=== PATIENT | female | born 1970 | race Caucasian/White ===

== ENCOUNTER 2022-06-19 02:45 | Inpatient (IN) | payer BC, OTHER ==
[~2022-06-19] VITALS: Ht 152.4 cm; Wt 133.8 kg
[2022-06-19 02:48] VITALS: BP_SYST 180
[2022-06-19] MEDS ORDERED: ONDANSETRON HCL 4 MG/2 ML VIAL IVP ONE (03:15)
[2022-06-19] MEDS ORDERED: MORPHINE 4 MG INJ. 4 MG/ML VIAL IVP ONE ×2 (03:15→06:00)
[2022-06-19] MEDS ORDERED: NACL 0.9% 1,000 ML IV ONE (03:15)
[2022-06-19 03:47] LABS: BASOPHILS % (AUTO) 0.4 % (0.0-2.0); EOSINOPHILS % (AUTO) 0.1 % (0.0-4.0); HEMATOCRIT 34.2 % (36-48); HEMOGLOBIN 9.9 g/dL (12.0-16.0); LYMPHOCYTES # (AUTO) 0.5 K/uL (1.0-5.5); LYMPHOCYTES % (AUTO) 4.2 % (20.5-51.5); MEAN CORPUSCULAR HEMOGLOBIN 17 pg (27-31); MEAN CORPUSCULAR HGB CONC 29 % (32-36); MEAN CORPUSCULAR VOLUME 59 fL (79.0-98.0); MONOCYTES # (AUTO) 0.2 K/uL (0.0-1.0); MONOCYTES % (AUTO) 1.8 % (1.7-9.3); NEUTROPHILS % (AUTO) 93.5 % (40.0-70.0); PLATELET COUNT (AUTO) 249 K/uL (130-430); RED BLOOD CELL COUNT(AUTO) 5.79 MIL/uL (4.2-6.2); RED CELL DISTRIBUTION WIDTH 21.9 % (9.0-15.0); WHITE BLOOD COUNT (AUTO) 12.8 K/uL (4.8-10.8)
[2022-06-19 04:13] LABS: ALBUMIN 3.4 g/dL (3.4-4.8); CREATININE 0.67 mg/dL (0.55-1.30); TOTAL BILIRUBIN 0.4 mg/dL (0.0-1.0)
[2022-06-19] MEDS ORDERED: LORazepam 2 MG/ML VIAL IVP ONE (07:00)
[2022-06-19 07:24] LABS: BILIRUBIN,URINE NEGATIVE (NEGATIVE); BLOOD, URINE NEGATIVE (NEGATIVE); CLARITY/URINE CLEAR (CLEAR); COLOR,URINE YELLOW (YELLOW); GLUCOSE,URINE NEGATIVE (NEGATIVE); KETONES,URINE NEGATIVE (NEGATIVE); LEUKOCYTE ESTERASE ,URINE NEGATIVE (NEGATIVE); NITRITE, URINE NEGATIVE (NEGATIVE); PH,URINE 7.5 (5.0-8.0); PROTEIN URINE 2+ (NEGATIVE); UROBILINOGEN,URINE 0.2 (0.2-1.0)
[2022-06-19 08:04] LABS: BACTERIA,URINE RARE /HPF (None Seen); MUCUS,URINE 1+ /LPF (None Seen); RBC,URINE 0-3 /HPF (0-3); WBC,URINE 0-3 /HPF (0-3)
[2022-06-19] MEDS ORDERED: GASTROGRAFIN 120 ML ONE (08:18)
[2022-06-19] MEDS: D5/0.45 NS 1,000 ML IV SCH ×2 (08:32→23:37)
[2022-06-19] MEDS ORDERED: ONDANSETRON HCL 4 MG/2 ML VIAL ONE (09:49)
[2022-06-19] MEDS ORDERED: HYDROmorphone 2 MG/ML VIAL ONE (09:49)
[2022-06-19] MEDS ORDERED: ePHEDrine sulfate 50 MG/ML VIAL ONE (09:49)
[2022-06-19] MEDS ORDERED: BUPIVACAINE /EPINEPHRINE/PF 0.5% 30 ML VIAL INJ ONE (09:49)
[2022-06-19] MEDS ORDERED: LR 1,000 ML IV.SOLN IV ONE (09:49)
[2022-06-19] MEDS ORDERED: PROPOFOL 200MG/ 20ML VIAL (DIPRIVAN) IV ONE (09:49)
[2022-06-19] MEDS ORDERED: SEVOFLURANE 15 MIN GAS INH ONE (09:49)
[2022-06-19] MEDS ORDERED: SUCCINYLCHOLINE CHLORIDE 20 MG/ML(QUELICIN) ONE (09:49)
[2022-06-19] MEDS ORDERED: SUGAMMADEX SODIUM 200 MG/2 ML VIAL IV ONE (09:49)
[2022-06-19] MEDS ORDERED: NS IRRIG SOLN 1000 ML IR ONE (09:49)
[2022-06-19] MEDS ORDERED: NALOXONE HCL 0.4 MG/ML AMP (NARCAN) IVP PRN ×4 (11:15→15:15)
[2022-06-19] MEDS ORDERED: ONDANSETRON HCL 4 MG/2 ML VIAL IVP PRN ×2 (11:15→15:15)
[2022-06-19] MEDS ORDERED: KETOROLAC TROMETHAMINE 30 MG VIAL IVP PRN (11:15)
[2022-06-19] MEDS ORDERED: HYDROmorphone 1 MG/ML INJ. CARTRIDGE IVP PRN ×2 (11:15)
[2022-06-19 11:29] VITALS: BP_SYST 150
[2022-06-19] MEDS ORDERED: KETOROLAC TROMETHAMINE 30 MG VIAL ONE (12:39)
[2022-06-19 13:57] VITALS: BP_SYST 130
[2022-06-19 14:00] VITALS: BP_SYST 130
[2022-06-19] MEDS ORDERED: LORazepam 2 MG/ML VIAL IVP PRN ×2 (15:00→15:15)
[2022-06-19] MEDS ORDERED: MORPHINE 2 MG/ML INJ. SYRINGE IVP PRN (15:15)
[2022-06-19 20:00] VITALS: BP_SYST 134
[2022-06-19] MEDS: MORPHINE 2 MG/ML INJ. SYRINGE IVP PRN (20:24)
[2022-06-19] MEDS: ONDANSETRON HCL 4 MG/2 ML VIAL IVP PRN (20:26)
[2022-06-19 23:44] VITALS: BP_SYST 112
[2022-06-20 04:28] VITALS: BP_SYST 132
[2022-06-20] MEDS: ONDANSETRON HCL 4 MG/2 ML VIAL IVP PRN (04:28)
[2022-06-20] MEDS: MORPHINE 2 MG/ML INJ. SYRINGE IVP PRN ×5 (04:28→22:03)
[2022-06-20 07:59] LABS: BASOPHILS % (AUTO) 0.4 % (0.0-2.0); EOSINOPHILS % (AUTO) 0.1 % (0.0-4.0); HEMATOCRIT 29.4 % (36-48); HEMOGLOBIN 8.5 g/dL (12.0-16.0); LYMPHOCYTES # (AUTO) 1.3 K/uL (1.0-5.5); LYMPHOCYTES % (AUTO) 15.8 % (20.5-51.5); MEAN CORPUSCULAR HEMOGLOBIN 17 pg (27-31); MEAN CORPUSCULAR HGB CONC 29 % (32-36); MEAN CORPUSCULAR VOLUME 60 fL (79.0-98.0); MONOCYTES # (AUTO) 0.9 K/uL (0.0-1.0); MONOCYTES % (AUTO) 10.5 % (1.7-9.3); NEUTROPHILS % (AUTO) 73.2 % (40.0-70.0); PLATELET COUNT (AUTO) 243 K/uL (130-430); RED CELL DISTRIBUTION WIDTH 21.7 % (9.0-15.0); WHITE BLOOD COUNT (AUTO) 8.2 K/uL (4.8-10.8)
[2022-06-20 08:00] VITALS: BP_SYST 135
[2022-06-20 08:16] LABS: ALBUMIN 2.7 g/dL (3.4-4.8); CREATININE 0.72 mg/dL (0.55-1.30); TOTAL BILIRUBIN 0.6 mg/dL (0.0-1.0)
[2022-06-20] MEDS: D5/0.45 NS 1,000 ML IV SCH ×2 (11:15→22:03)
[2022-06-20 12:00] VITALS: BP_SYST 137
[2022-06-20 16:00] VITALS: BP_SYST 127
[2022-06-20 20:30] VITALS: BP_SYST 125
[2022-06-21] MEDS: MORPHINE 2 MG/ML INJ. SYRINGE IVP PRN ×4 (03:13→21:34)
[2022-06-21 06:21] LABS: BASOPHILS % (AUTO) 0.3 % (0.0-2.0); EOSINOPHILS # (AUTO) 0.1 K/uL (0.0-0.4); EOSINOPHILS % (AUTO) 0.7 % (0.0-4.0); HEMATOCRIT 26.1 % (36-48); HEMOGLOBIN 7.6 g/dL (12.0-16.0); LYMPHOCYTES # (AUTO) 1.4 K/uL (1.0-5.5); LYMPHOCYTES % (AUTO) 13.8 % (20.5-51.5); MEAN CORPUSCULAR HEMOGLOBIN 18 pg (27-31); MEAN CORPUSCULAR HGB CONC 29 % (32-36); MEAN CORPUSCULAR VOLUME 60 fL (79.0-98.0); MONOCYTES # (AUTO) 0.9 K/uL (0.0-1.0); MONOCYTES % (AUTO) 8.2 % (1.7-9.3); NEUTROPHILS # (AUTO) 8.1 K/uL (1.8-7.7); PLATELET COUNT (AUTO) 229 K/uL (130-430); RED BLOOD CELL COUNT(AUTO) 4.34 MIL/uL (4.2-6.2); RED CELL DISTRIBUTION WIDTH 21.6 % (9.0-15.0); WHITE BLOOD COUNT (AUTO) 10.5 K/uL (4.8-10.8)
[2022-06-21 07:09] LABS: ALBUMIN 2.4 g/dL (3.4-4.8); CALCIUM 7.8 mg/dL (8.4-11.0); CREATININE 0.67 mg/dL (0.55-1.30); TOTAL BILIRUBIN 0.5 mg/dL (0.0-1.0)
[2022-06-21 08:00] VITALS: BP_SYST 132
[2022-06-21] MEDS: D5/0.45 NS 1,000 ML IV SCH (10:30)
[2022-06-21 12:00] VITALS: BP_SYST 132
[2022-06-21 16:00] VITALS: BP_SYST 122
[2022-06-21 20:00] VITALS: BP_SYST 113
[2022-06-21] MEDS: guaiFENesin/DEXTROMETHORPHAN 10 ML UDC PO PRN (23:38)
[2022-06-22] MEDS: D5/0.45 NS 1,000 ML IV SCH ×2 (06:25→16:00)
[2022-06-22 08:04] LABS: BASOPHILS % (AUTO) 0.4 % (0.0-2.0); EOSINOPHILS # (AUTO) 0.2 K/uL (0.0-0.4); EOSINOPHILS % (AUTO) 2.2 % (0.0-4.0); HEMATOCRIT 25.8 % (36-48); HEMOGLOBIN 7.6 g/dL (12.0-16.0); LYMPHOCYTES # (AUTO) 1.2 K/uL (1.0-5.5); MEAN CORPUSCULAR HEMOGLOBIN 18 pg (27-31); MEAN CORPUSCULAR HGB CONC 30 % (32-36); MEAN CORPUSCULAR VOLUME 60 fL (79.0-98.0); MONOCYTES # (AUTO) 0.6 K/uL (0.0-1.0); MONOCYTES % (AUTO) 5.5 % (1.7-9.3); NEUTROPHILS # (AUTO) 8.2 K/uL (1.8-7.7); NEUTROPHILS % (AUTO) 79.9 % (40.0-70.0); PLATELET COUNT (AUTO) 259 K/uL (130-430); RED BLOOD CELL COUNT(AUTO) 4.31 MIL/uL (4.2-6.2); RED CELL DISTRIBUTION WIDTH 21.5 % (9.0-15.0); WHITE BLOOD COUNT (AUTO) 10.3 K/uL (4.8-10.8)
[2022-06-22 08:13] LABS: ALBUMIN 2.5 g/dL (3.4-4.8); CALCIUM 8.2 mg/dL (8.4-11.0); CREATININE 0.64 mg/dL (0.55-1.30); TOTAL BILIRUBIN 0.1 mg/dL (0.0-1.0)
[2022-06-22 08:30] VITALS: BP_SYST 115
[2022-06-22] MEDS: guaiFENesin/DEXTROMETHORPHAN 10 ML UDC PO PRN ×2 (08:47→14:39)
[2022-06-22] MEDS: MORPHINE 2 MG/ML INJ. SYRINGE IVP PRN ×2 (08:47→16:23)
[2022-06-22 10:04] VITALS: BP_SYST 115
[2022-06-22 11:02] VITALS: BP_SYST 137
[2022-06-22 16:41] VITALS: BP_SYST 130
[2022-06-22] MEDS ORDERED: ACETAMINOPHEN 500 MG TABLET PO PRN (18:15)
[2022-06-22 20:00] VITALS: BP_SYST 137
[2022-06-22] MEDS ORDERED: PROMETHAZINE HCL/CODEINE 6.25-10 mg/5 mL UDC PO PRN (20:15)
[2022-06-22] MEDS: HYDROcodone/ACETAMIN 7.5-325 MG TAB PO PRN (21:41)
[2022-06-22] MEDS: guaiFENesin 200 MG/CODEINE 20 MG/ 10 ML UDC PO PRN (22:12)
[2022-06-23] MEDS: D5/0.45 NS 1,000 ML IV SCH (00:05)
[2022-06-23 00:09] VITALS: BP_SYST 127
[2022-06-23] MEDS: HYDROcodone/ACETAMIN 7.5-325 MG TAB PO PRN ×2 (05:48→15:16)
[2022-06-23] MEDS: guaiFENesin 200 MG/CODEINE 20 MG/ 10 ML UDC PO PRN ×2 (05:48→11:04)
[2022-06-23 07:07] LABS: BASOPHILS # (AUTO) 0.1 K/uL (0.0-0.2); BASOPHILS % (AUTO) 0.8 % (0.0-2.0); EOSINOPHILS # (AUTO) 0.2 K/uL (0.0-0.4); EOSINOPHILS % (AUTO) 2.4 % (0.0-4.0); HEMATOCRIT 27.6 % (36-48); LYMPHOCYTES # (AUTO) 1.2 K/uL (1.0-5.5); LYMPHOCYTES % (AUTO) 15.6 % (20.5-51.5); MEAN CORPUSCULAR HEMOGLOBIN 18 pg (27-31); MEAN CORPUSCULAR HGB CONC 29 % (32-36); MEAN CORPUSCULAR VOLUME 60 fL (79.0-98.0); MONOCYTES # (AUTO) 0.5 K/uL (0.0-1.0); MONOCYTES % (AUTO) 6.2 % (1.7-9.3); NEUTROPHILS # (AUTO) 5.9 K/uL (1.8-7.7); PLATELET COUNT (AUTO) 272 K/uL (130-430); RED BLOOD CELL COUNT(AUTO) 4.58 MIL/uL (4.2-6.2); RED CELL DISTRIBUTION WIDTH 21.3 % (9.0-15.0); WHITE BLOOD COUNT (AUTO) 7.8 K/uL (4.8-10.8)
[2022-06-23 08:00] VITALS: BP_SYST 123
[2022-06-23 08:06] LABS: CALCIUM 8.4 mg/dL (8.4-11.0); CREATININE 0.54 mg/dL (0.55-1.30)
[2022-06-23 12:39] VITALS: BP_SYST 123
[2022-06-23 15:47] VITALS: BP_SYST 133
[2022-06-23] MEDS ORDERED: HYDR-4497 PO (17:20)
[2022-06-23] MEDS ORDERED: GUAI5SYR PO (17:20)
[2022-06-23] MEDS ORDERED: HYDR-3921 PO (21:08)
== END 2022-06-23 16:00 | disposition home or self-care (01) | DRG 354 ==
LOC: SED 02:45 → SMU 07:57 → STU 15:59 → SMU 06-20 10:54
PROVIDERS: ADMIT Internal Medicine; ATTEND Internal Medicine
PROC: 0WUF0JZ Supplement Abdominal Wall with Synthetic Substitute, Open Approach (ICD-10-PCS; principal; 2022-06-19 09:49)
DX: K43.6 Other and unspecified ventral hernia with obstruction, without gangrene (principal); D62 Acute posthemorrhagic anemia; Z68.43 Body mass index [BMI] 50.0-59.9, adult; E66.01 Morbid (severe) obesity due to excess calories; J45.909 Unspecified asthma, uncomplicated; R73.9 Hyperglycemia, unspecified; Z20.822 Contact with and (suspected) exposure to COVID-19; Z98.891 History of uterine scar from previous surgery; Z98.51 Tubal ligation status
CPT/HCPCS: 36415; 71045; 74018; 74250-TC; 76376; 80048; 80053; 81000; 83605; 83690; 85025; 87081; 88302; 93005; 96361; 96374; 96375; 96376; 99285; C1781; G0378; J0330; J1170; J1885; J2060; J2270; J2405; J2704; J3490; J7120; Q9963; Q9967

== ENCOUNTER 2022-07-22 04:43 | Emergency (ER) | payer BC ==
[~2022-07-22] VITALS: Ht 152.4 cm; Wt 130.2 kg
[~2022-07-22 04:43] MED LIST: GUAI5SYR PO; HYDR-3921 PO
[2022-07-22 05:00] VITALS: BP_SYST 133
--- NOTE | 2022-07-22 05:21 | NUR ---
Patient to ER bed 7 to gown for evaluation. Side rails up. Report given to Shell DURAND(reg).
--- NOTE | 2022-07-22 05:41 | NUR ---
pt a/o x 4. changing dressing and believes she has a muscle spasm. pain is right upper back around her arm. placed pt on monitor
--- NOTE | 2022-07-22 06:15 | NUR ---
ER at bedside examining patient.
[2022-07-22] MEDS ORDERED: HYDROcodone/ACETAMIN 10-325 MG TAB PO ONE (06:30)
[2022-07-22] MEDS ORDERED: KETOROLAC TROMETHAMINE 60 MG/2 ML VIAL IM ONE (06:30)
[2022-07-22 06:46] LABS: BASOPHILS # (AUTO) 0.1 K/uL (0.0-0.2); BASOPHILS % (AUTO) 0.7 % (0.0-2.0); EOSINOPHILS # (AUTO) 0.5 K/uL (0.0-0.4); EOSINOPHILS % (AUTO) 5.6 % (0.0-4.0); HEMATOCRIT 28.8 % (36-48); HEMOGLOBIN 8.3 g/dL (12.0-16.0); LYMPHOCYTES # (AUTO) 1.1 K/uL (1.0-5.5); LYMPHOCYTES % (AUTO) 13.7 % (20.5-51.5); MEAN CORPUSCULAR HEMOGLOBIN 18 pg (27-31); MEAN CORPUSCULAR HGB CONC 29 % (32-36); MEAN CORPUSCULAR VOLUME 60 fL (79.0-98.0); MONOCYTES # (AUTO) 0.4 K/uL (0.0-1.0); MONOCYTES % (AUTO) 5.2 % (1.7-9.3); NEUTROPHILS # (AUTO) 6.3 K/uL (1.8-7.7); NEUTROPHILS % (AUTO) 74.8 % (40.0-70.0); PLATELET COUNT (AUTO) 286 K/uL (130-430); RED BLOOD CELL COUNT(AUTO) 4.78 MIL/uL (4.2-6.2); RED CELL DISTRIBUTION WIDTH 20.3 % (9.0-15.0); WHITE BLOOD COUNT (AUTO) 8.4 K/uL (4.8-10.8)
[2022-07-22 07:23] LABS: CALCIUM 8.5 mg/dL (8.4-11.0); CREATININE 0.56 mg/dL (0.55-1.30)
[2022-07-22 07:41] LABS: ALBUMIN 2.8 g/dL (3.4-4.8); TOTAL BILIRUBIN 0.3 mg/dL (0.0-1.0); URIC ACID 4.8 mg/dL (2.4-7.0)
[2022-07-22 07:59] LABS: ERYTHROCYTE SEDIMENTATION RATE > 130 MM/HR (0-20)
[2022-07-22] MEDS ORDERED: TRAM50TA2 PO (08:42)
[2022-07-22] MEDS ORDERED: IBUP-1969 PO (08:42)
[2022-07-22 09:03] VITALS: BP_SYST 138
--- NOTE | 2022-07-22 09:03 | NUR ---
PT MEDICALLY CLEARED FOR DISCHARGE. D/C INSTRUCTIONS GIVEN TO PT. PT TO FOLLOW-UP WITH PCP WITHIN 1-3 DAYS AND TO RETURN TO ED FOR WORSENING S/S. PT VERBALZIED UNDERSTANDING. PT AAX04, NAD, WRISTBAND REMOVED. PT AMBULATORY WITH STEADY GAIT. PT LEFT ED WITH ALL BELONGINGS.
== END 2022-07-22 09:03 | disposition home or self-care (01) ==
LOC: SED 04:43
DX: M13.811 Other specified arthritis, right shoulder (principal); B99.9 Unspecified infectious disease; M25.511 Pain in right shoulder; J45.909 Unspecified asthma, uncomplicated; Z79.899 Other long term (current) drug therapy
CPT/HCPCS: 99284; 80053; 84550; 85025; 85651; 86140; 36415; 73030; 96372; 83605; J1885